=== PATIENT | male | born 1955 | race Asian ===

== ENCOUNTER 2025-01-23 09:22 | Outpatient (REF) | payer SELFPAY ==
--- NOTE | ~2025-01-23 | XR_ITS ---
EXAMINATION: XR CHEST 2 VIEWS HISTORY: positive TB COMPARISON: There are no prior studies for comparison. FINDINGS: PA and lateral views of the chest are submitted. There is pleural calcification on the right. There is patchy airspace opacity in the right lower lobe which may represent pneumonia. The left lung is clear. There is no pleural effusion, pneumothorax, or pulmonary vascular congestion. The heart is normal in size. The bones are intact. XR/XR chest 2V IMPRESSION: Patchy airspace opacity in the right lower lobe which may represent pneumonia. Comparison with prior outside studies is recommended. Electronically signed by: Adan Crawford MD 01/23/2025 12:41 PM EDT
--- OUTSIDE RECORDS SUMMARY | 2025-01-23 10:25 | XMS_ITS ---
Author Name [facility] Organization Unknown History of Medication Use Medication Directions Dispensed Refills Start Date End Date Stat active Encounters Encounter Type Encounter Reason Primary Diagnosis Location Date Ambulatory [facility] 025 Ambulatory [facility] 025 Ambulatory [facility] 025 Ambulatory [facility] 025 Care Team Organization Name Specialty Phone Email Start Date End Da [facility] YANET WARREN Primary Care 10/2025
--- OUTSIDE RECORDS SUMMARY | 2025-01-23 10:25 | XMS_ITS | Data Portability ---
Author Organization [place] [facility] [employer] Address [address] [facility] [address] [place] [address] Assessment No assessment recorded. Plan of Treatment Reminders Order Date Submit Date Provider Last Modified By Organization Details Last Modified Time Details Appointments None recorded. Lab measles + mumps + rubella virus IgG panel, QN, serum or plasma 2024 025 [facility], [address] [place], [address], 5 23:05:49 varicella zoster virus IgG Ab, QL, IA, serum 2024 025 [facility], [address] [place], [address], 5 23:05:50 Mycobacteri um tuberculosi s stimulated gamma interferon, qual, blood 2024 025 [place] [facility], [address] [place], [address], 5 23:05:50 Referral None recorded. Procedures None recorded. Surgeries None recorded. Imaging None recorded. Medication Orders None recorded. Patient TargetsNo targets recorded. Patient InstructionsNo instructions recorded. Reason for Referral None Reported. Results Created Date Observation Date Name Description Value Unit Range Abnormal Flag Note LastModifiedBy Organization Detail LastModifiedTime 12/21/1912/22/2024 MEASL ES/MU MPS/R UBELL A IMMUN ITY rubella antibodies, IgG 2.43 index immune >0.99 Non-i mmune <0.90 Equiv ocal 0.90 - 0.99 Immun e >0.99 Not Available [facility] ([facility]) [address] [facility], [place], [address], 12/25/2024 23:05:49 12/21/1912/22/2024 MEASL ES/MU MPS/R UBELL A IMMUN ITY measles antibodies, IgG >300.0 AU/mL immune >16.4 Negat luz <13.5 Equiv ocal 13.5 - 16.4 Posit luz >16.4 Prese nce of antib odies to Rubeo la is presu mptiv e evide nce of immun ity excep t when acute infec tion is suspe cted. Not Available [facility] ([facility]) [address] [facility], [place], [address], 12/25/2024 23:05:49 12/21/19 25 12/22/2024 MEASL ES/MU MPS/R UBELL A IMMUN ITY mumps abs, IgG 12.1 AU/mL immune >10.9 Negat luz <9.0 Equiv ocal 9.0 - 10.9 Posit luz >10.9 A posit luz resul t gener ally indic ates past expos ure to Mumps virus or previ ous vacci natio n. Not Available [facility] ([facility]) [address] [facility], [place], [address], 12/25/2024 23:05:49 12/21/19 25 12/23/2024 QUANT IFERO N-TB GOLD PLUS quantiferon incubation Incuba tion perfor med. Not Available [facility] ([facility]) [address] [place], [address], 12/25/2024 23:05:49 12/21/1912/23/2024 QUANT IFERO N-TB GOLD PLUS quantiferon criteria Commen t Quant iFERO N-TB Gold Plus is a quali tativ e indir ect test for M tuber culos is infec tion (incl uding disea se) and is inten ded for use in conju nctio n with risk asses sment , radio graph y, and other medic al and diagn ostic evalu ation s. The Quant iFERO N-TB Gold Plus resul t is deter mined by subtr actin g the Nil value from eithe r TB antig en (Ag) value . The Mitog en tube serve s as a contr ol for the test. Not Available [facility] ([facility]) [address] [place], [address], 12/25/2024 23:05:49 12/21/19 25 12/25/2024 QUANT IFERO N-TB GOLD PLUS quantiferon TB1 Ag value >10.00 IU/mL Not Available [facility] ([facility]) [address] [place], [address], 12/25/2024 23:05:49 12/21/19 25 12/25/2024 QUANT IFERO N-TB GOLD PLUS quantiferon TB2 Ag value >10.00 IU/mL Not Available [facility] ([facility]) [address] [place], [address], 12/25/2024 23:05:49 12/21/19 25 12/25/2024 QUANT IFERO N-TB GOLD PLUS quantiferon nil value 0.04 IU/mL Not Available [facility] ([facility]) [address] [place], [address], 12/25/2024 23:05:49 12/21/19 25 12/25/2024 QUANT IFERO N-TB GOLD PLUS quantiferon mitogen value 0.43 IU/mL Not Available [facility] ([facility]) [address] [place], [address], 12/25/2024 23:05:49 12/21/19 25 12/25/2024 QUANT IFERO N-TB GOLD PLUS quantiferon- TB gold plus Positi ve negati ve abnormal A respo nse to M tuber culos is antig ens has been detec zachariah. If patie nt is at low risk for Tuber culos is, the resul t shoul d be inter prete d with cauti on and repea t testi ng on a new speci men is recom damari d (ATS/ IDSA/ CDC Clini alireza Pract ice Guide lines , 2017) . False posit dandre can also occur due to infec tion by Vu germain, Vu perry, or Vu finn. Chemi lumin escen ce immun oassa y metho dolog y Not Available [facility] ([facility]) [address] [facility], [place], [address], 12/25/2024 23:05:49 12/21/19 25 12/22/2024 VARIC MARK- ZOSTE R V AB, IGG varicella zoster IgG Reacti ve non reacti ve Ple ase note refer ence inter mike blancas e A React luz resul t is consi dered evide nce of immun ity to VZV. React luz indic ates that VZV IgG was detec zachariah consi stent with previ ous infec tion and/o r vacci natio n. A Non React luz resul t indic ates that VZV IgG was not detec zachariah sugge sting that immun ity has not been acqui red. Not Available [facility] ([facility]) [address] [facility], [place], [address], 12/25/2024 23:05:50 12/27/19 25 12/27/2024 XR, chest , 1 view No observ ation record ed. [email or web address] Not Available 12/28 08:37:46 Result Notes None recorded. Procedures Surgical History None recorded. Imaging Results Imaging Date Name Status LastModified by Organiz ation Details LastModified Time 12/27/2024 XR, chest, 1 view completed Information not available 12/28/2024 08:37:46 Procedure Notes None recorded. Medical Equipment None Reported. Medications Not known to be on any medication Vitals None Recorded Social History None recorded. Functional Status None recorded. Mental Status None recorded. Family History Nothing Reported. Medical History No medical history recorded. Past Encounters Encounter ID Performer Location Encounter Start Date Encounter Closed Date Diagnosis/Indication Diagnosis SNOMED-CT Code Diagnosis ICD10 Code Diagnosis Note [id number] Kg Rosa MD [facility] [address] [place] [address] 12/21/2024 09:41:25 12/21/2024 10:29:52 History and physical examination, immigration 626458750 Z02.89 Immigratio n Physical Exam is normal. Tuberculos is screening 450796797 Z11.1 Check quantifero n for TB screening. H/o ?fibrosis on CXR in the past. D/w pt and dtr that if tb positive and cxr positive, will need 3 sputum samples. Venereal d isease screening 135154250 Z11.3 STD screening per guidelines Gonorrhea: 18-24 years Syphilis: 18-45 years Active or passive immunization 390737121 Z23 Tdap - {{Has childhood records Al l records complete P t will get records from provider N o records available 1 dose#}}Barrett io - {{Has childhood records Al l records complete P t will get records from provider N o records available* }} {{Pt will get at pharmacy* Given today Pt will get at next visit}}Inf luenza - {{Pt will get at pharmacy P t will get records from provider R ecords complete* Given today Not flu season}}CO VID - {{Pt will get at pharmacy* Given today Pt will get at next visit Pt will get records from provider R ecords complete D oes not want COVID vaccine}}M MR - {{Titers ordered* P t will get vaccine at pharmacy P t will get records from provider V accine Records complete T iter results complete R eceived 1st dose and needs second dose Given today Will get at next visit Not required due to age}}Varic mark - {{Titers ordered* P t will get vaccine at pharmacy P t will get records from provider V accine Records complete T iter results complete G iven today Will get at next visit Rece ived 1st dose and needs to get second dose Varic mark history positive}} Hepatitis B - {{Titers ordered Pt will get vaccine at pharmacy P t will get records from provider V accine Records complete T iter results complete G iven today Need s additional dose of Hep B Vaccine No t required due to age*}}Pneu monia - {{Pt will get vaccine at pharmacy P t will get records from provider V accine Records complete* Given today Need s second dose of pneumonia Vaccine No t required due to age}} Health Concerns Section Related Observation LastModified by Organization Detai ls LastModified Time None Recorded Concern Status LastModified by Organization Details LastModified Time None Recorded Advance Directives Directive None Recorded Payers Encounter Date Sequence Insurance Name Policy Number Policy Razo Covered Member ID Razo Member ID Guarantor Name 12/21/2024 1 *SELF PAY* Yue Briceño Notes Date Note Type Note Provider Name and Address Organization Details Recorded Time 12/21/2024 text/html Pt is here for Immigration Exam. History taken from {{Patient* Parents Ot her Caregiver}}. Dtr is interpreting. {{No history of* History positive for}} Gonorrhea {{No history of* History positive for}} Syphilis {{No history of* History positive for}} Tuberculosis {{No history* History positive for}} of contact or exposure to tuberculosis {{No history of* History positive for}} pulmonary symptoms including coughing and/or hemoptysis {{No history of* History positive for}} unintentional weight loss in the last few months {{No history of* History positive for}} fevers especially at night in the last few months {{No history of* History positive for}} Rouse's disease {{No history* History positive for}} of contact or exposure to Rouse's disease {{No history of* History positive for}} rash/spot on the body without sensation or that does not heal {{No history of* History positive for}} hospitalization - {{childbirth surgery acute limited condition}} {{No history of* History positive for}} violent behavior {{No history of* History positive for}} mental health problems with risk of harm {{No history of* History positive for}} drug abuse Kg Rosa MD [address] [place] [address],[address], [place], [address], [place] [facility] 10:24:43
== END 2025-01-23 09:23 | disposition home or self-care (01) ==
LOC: HO.XRAY 09:22
PROVIDERS: Visit Provider Family Medicine
DX: R76.11 Nonspecific reaction to tuberculin skin test without active tuberculosis (principal)
CPT/HCPCS: 71046

== ENCOUNTER → 2025-01-23 09:38 | Outpatient (BNV) | payer SELFPAY | PROVIDERS: Visit Provider Radiology Diagnostic Radiology | DX: R05.9 Cough, unspecified (principal) | CPT/HCPCS: 71046 ==